=== PATIENT | female | born 1935 | race Caucasian/White ===

== ENCOUNTER 2018-03-07 10:52 | Inpatient (IN) | payer OTHER ==
[~2018-03-07] VITALS: Ht 160 cm; Wt 76.9 kg
[2018-03-07 12:14] LABS: HEMATOCRIT 35.8 % (36.0-46.0); HEMOGLOBIN 12.1 G/DL (11.9-15.5); MCH 30.1 PG (29.0-34.0); MCHC 33.8 G/DL (30.0-36.0); MCV 89.1 FL (83-99); RBC DIS.WIDTH-CV 14.1 % (11.8-14.6); RBC DIS.WIDTH-SD 46.2 % (39-53); RED BLOOD COUNT 4.02 M/uL (3.80-5.20); WHITE BLOOD COUNT 6.4 K/uL (4.1-10.2)
[2018-03-07 12:25] LABS: INTER. NORMALIZED RATIO 1.2
[2018-03-07 12:28] LABS: PTT 26.3 SEC (25-37)
[2018-03-07 13:13] LABS: CHLORIDE 101 MEQ/L (99-109); CREATININE 0.8 MG/DL (0.6-1.3); GFR ESTIMATE (CALCULATED) > 59 mL/min/; GLUCOSE 107 mg/dL (70-99); PLAT.SUFFICIENCY DECREASED; PLATELET COUNT 145 K/uL (156-360); POTASSIUM 4.2 MEQ/L (3.7-5.4); SODIUM 137 MEQ/L (136-147); UREA NITROGEN (BUN) 14 mg/dL (9-23)
[2018-03-07] MEDS ORDERED: ZESTRIL10 MG PO (14:51)
[2018-03-07] MEDS ORDERED: SYNTHROID75 MCG PO (14:51)
[2018-03-07] MEDS ORDERED: ZOCOR40 MG PO (14:52)
[2018-03-07] MEDS ORDERED: FISH OIL 1,0001 EAC7 PO (14:54)
[2018-03-07] MEDS ORDERED: CALCIUM 600 +1 EAC2 PO (14:54)
[2018-03-07] MEDS ORDERED: GLUCOSAMINE-CH1 EAC6 PO (14:55)
[2018-03-07] MEDS ORDERED: ASPIR 8181 M1 PO (14:55)
[2018-03-07] MEDS ORDERED: REFRESH TEARS15 ML BOTH EYES (14:56)
[2018-03-07] MEDS ORDERED: ADVIL200 MG PO (14:57)
[2018-03-07 15:52] LABS: TROP-I INTERPRETATION NEGATIVE; TROPONIN-I < 0.01 ng/mL (0.0-0.30)
[2018-03-07 18:05] VITALS: BP 141/87
[2018-03-07 19:57] VITALS: BP 131/64
[2018-03-07 23:32] VITALS: BP 106/59
[2018-03-08 03:48] VITALS: BP 100/60
[2018-03-08 06:54] LABS: HEMATOCRIT 33.7 % (36.0-46.0); HEMOGLOBIN 11.3 G/DL (11.9-15.5); MCH 29.5 PG (29.0-34.0); MCHC 33.5 G/DL (30.0-36.0); PLATELET COUNT 151 K/uL (156-360); RBC DIS.WIDTH-CV 14.1 % (11.8-14.6); RBC DIS.WIDTH-SD 45.4 % (39-53); RED BLOOD COUNT 3.83 M/uL (3.80-5.20); WHITE BLOOD COUNT 6.2 K/uL (4.1-10.2)
[2018-03-08 07:14] VITALS: BP 92/50
[2018-03-08 11:48] VITALS: BP 116/67
[2018-03-08 15:48] VITALS: BP 114/62
[2018-03-08 19:52] VITALS: BP 117/64
[2018-03-08 22:37] VITALS: BP 121/56
[2018-03-09 03:36] VITALS: BP 134/70
[2018-03-09 07:38] VITALS: BP 130/72
[2018-03-09 11:30] VITALS: BP 146/71
[2018-03-09] MEDS ORDERED: LEVOTHYROXINE50 MCG PO (13:02)
[2018-03-09] MEDS ORDERED: ELIQUIS5 MG PO (13:02)
== END 2018-03-09 15:51 | disposition home or self-care (01) | DRG 176 ==
LOC: EME 10:52 → 5EAST 15:20 → EDOF 15:20 → ENRESERV 15:28 → 5EAST 17:30
PROVIDERS: Physician Assistant
DX: I26.99 Other pulmonary embolism without acute cor pulmonale (principal); I82.401 Acute embolism and thrombosis of unspecified deep veins of right lower extremity; I10 Essential (primary) hypertension; E03.9 Hypothyroidism, unspecified; E78.5 Hyperlipidemia, unspecified; Z66 Do not resuscitate; Z79.82 Long term (current) use of aspirin; Z90.710 Acquired absence of both cervix and uterus
CPT/HCPCS: 71275; 74176; 80048; 84484; 85027; 85610; 85730; 93005; 93306; 99281; 99285